=== PATIENT | male | born 1995 | race Hispanic/Latino ===

== ENCOUNTER 2017-06-27 22:50 | Emergency (ER) | payer SELFPAY ==
[2017-06-28] MEDS ORDERED: GENTAMICIN0.31 OD (00:08)
[2017-06-28 00:46] VITALS: BP 136/85
== END 2017-06-28 00:46 | disposition home or self-care (01) | DRG 125 ==
LOC: ED 22:50
DX: H10.9 Unspecified conjunctivitis (principal); S05.01XA Injury of conjunctiva and corneal abrasion without foreign body, right eye, initial encounter; X58.XXXA Exposure to other specified factors, initial encounter; Y93.89 Activity, other specified; Y92.89 Other specified places as the place of occurrence of the external cause